=== PATIENT | female | born 1995 | race Caucasian/White ===

== ENCOUNTER 2023-10-04 08:18 | Day surgery (SDC) | payer BC ==
[2023-10-04] MEDS: Lactated Ringers 1,000 ML IV SCH (10:13)
[2023-10-04] MEDS ORDERED: propofoL 50 ML ONE ×2 (10:28→11:02)
[2023-10-04] MEDS ORDERED: dexmedeTOMIDine HCl 200 MCG/2 ML SDV ONE (10:29)
[2023-10-04] MEDS ORDERED: Ketamine HCL/NACL, ISO-OSM 50 MG/5 ML Syringe ONE (10:52)
== END 2023-10-04 13:00 | disposition home or self-care (01) ==
LOC: MW.SDS 08:18
PROVIDERS: ATTEND Surgery
DX: K31.7 Polyp of stomach and duodenum (principal); K20.0 Eosinophilic esophagitis; K21.9 Gastro-esophageal reflux disease without esophagitis; E66.01 Morbid (severe) obesity due to excess calories; R19.4 Change in bowel habit; E03.9 Hypothyroidism, unspecified; J45.909 Unspecified asthma, uncomplicated; G47.33 Obstructive sleep apnea (adult) (pediatric); Z79.890 Hormone replacement therapy; Z79.899 Other long term (current) drug therapy; Z68.43 Body mass index [BMI] 50.0-59.9, adult
CPT/HCPCS: 43239; 45380; 81025; J2704; J7120; 00813; J3490

== ENCOUNTER 2024-06-24 19:25 | Emergency (ER) | payer BC ==
[2024-06-24] MEDS: Sodium Chloride 0.9% 1,000 ML IV ONE (22:05)
[2024-06-24 22:06] LABS: BASOPHILS ABSOLUTE AUTO 0.01 K/uL (0.00-0.20); BASOPHILS PERCENT AUTO 0.2 % (0.0-1.0); EOSINOPHILS ABSOLUTE AUTO 0.21 K/uL (0.00-0.45); EOSINOPHILS PERCENT AUTO 3.7 % (0.0-6.0); HEMATOCRIT 44.2 % (37.0-47.0); HEMOGLOBIN 14.5 g/dL (12.0-16.0); IMMATURE GRAN ABSOLUTE AUTO 0.01 K/uL (0.00-0.05); IMMATURE GRAN PERCENT AUTO 0.2 % (0.0-0.4); LYMPHOCYTES ABSOLUTE AUTO 1.97 K/uL (1.00-4.80); LYMPHOCYTES PERCENT AUTO 34.4 % (24.0-44.0); MEAN CORPUSCULAR HEMOGLOBIN 28.4 pg (28.0-32.0); MEAN CORPUSCULAR HGB CONC 32.8 g/dL (32.0-36.0); MEAN CORPUSCULAR VOLUME 86.5 fL (83.0-99.0); MONOCYTES ABSOLUTE AUTO 0.76 K/uL (0.00-0.80); MONOCYTES PERCENT AUTO 13.3 % (0.0-8.0); NEUTROPHILS ABSOLUTE AUTO 2.77 K/uL (1.80-7.70); NEUTROPHILS PERCENT AUTO 48.2 % (41.0-71.0); PLATELET COUNT,PLT 227 K/uL (150-400); RED BLOOD CELL COUNT 5.11 M/uL (4.10-5.30); WHITE BLOOD CELL COUNT,WBC 5.73 K/uL (3.9-11.3)
[2024-06-24] MEDS: droPERidol 2.5 MG/ML SDV IVPUSH PRN (22:09)
[2024-06-24] MEDS: Ondansetron 4 MG/2 ML SDV IVPUSH ONE (22:09)
[2024-06-24] MEDS: Pantoprazole 40 MG in Sodium Chloride 0.9% 10 ML IVPUSH ONE (22:09)
[2024-06-24 22:35] LABS: A/G RATIO 1.1 (0.9-1.6); ALBUMIN 3.6 g/dL (3.4-5.0); BILIRUBIN TOTAL 0.8 mg/dL (0.2-1.0); CARBON DIOXIDE,CO2 26.3 mmol/L (21.0-32.0); EST CRCL DRUG DOSING (CG) 77.71 mL/min; POTASSIUM,K 3.5 mmol/L (3.5-5.1)
== END 2024-06-24 22:36 | disposition left against medical advice (07) ==
LOC: MW.ED 19:25
DX: A08.4 Viral intestinal infection, unspecified (principal); E86.0 Dehydration; E53.1 Pyridoxine deficiency; J45.909 Unspecified asthma, uncomplicated; K21.9 Gastro-esophageal reflux disease without esophagitis; E03.9 Hypothyroidism, unspecified; E66.9 Obesity, unspecified; Z79.899 Other long term (current) drug therapy; Z79.890 Hormone replacement therapy
CPT/HCPCS: 36415; 80053; 83690; 84703; 85025; 96374; 96375; 99284; J1790; J2405; J2470; J7030; 99283

== ENCOUNTER 2024-09-17 05:09 | Emergency (ER) | payer BC ==
[2024-09-17 05:32] LABS: BASOPHILS ABSOLUTE AUTO 0.05 K/uL (0.00-0.20); BASOPHILS PERCENT AUTO 0.4 % (0.0-1.0); EOSINOPHILS ABSOLUTE AUTO 0.21 K/uL (0.00-0.45); EOSINOPHILS PERCENT AUTO 1.8 % (0.0-6.0); IMMATURE GRAN ABSOLUTE AUTO 0.11 K/uL (0.00-0.05); IMMATURE GRAN PERCENT AUTO 1.0 % (0.0-0.4); LYMPHOCYTES ABSOLUTE AUTO 3.86 K/uL (1.00-4.80); LYMPHOCYTES PERCENT AUTO 33.6 % (24.0-44.0); MEAN PLATELET VOLUME 9.8 fL (9.4-12.3); MONOCYTES ABSOLUTE AUTO 0.61 K/uL (0.00-0.80); MONOCYTES PERCENT AUTO 5.3 % (0.0-8.0); NEUTROPHILS ABSOLUTE AUTO 6.66 K/uL (1.80-7.70); NEUTROPHILS PERCENT AUTO 57.9 % (41.0-71.0); NRBC ABSOLUTE 0.00 K/uL (0.00-0.02); NRBC PERCENT 0.0 /100WBC (0.0-0.2); PLATELET COUNT,PLT 491 K/uL (150-400); RED BLOOD CELL COUNT 4.61 M/uL (4.10-5.30); WHITE BLOOD CELL COUNT,WBC 11.50 K/uL (3.9-11.3)
[2024-09-17 05:38] LABS: GLUCOSE,URINE NEGATIVE (NEGATIVE); OCCULT BLOOD,URINE LARGE (NEGATIVE)
[2024-09-17] MEDS ORDERED: Sodium Chloride 0.9% 2.5 ML Syringe FLUSH PRN (05:39)
[2024-09-17] MEDS ORDERED: Sodium Chloride 0.9% 10 ML Syringe FLUSH PRN (05:39)
[2024-09-17 05:50] LABS: APPEARANCE,URINE SLT CLOUDY
[2024-09-17 05:58] LABS: A/G RATIO 0.8 (0.9-1.6); ALANINE AMINOTRANSFERASE,ALT 45.0 IU/L (14-63); ASPARTATE AMNIOTRANSFERASE,AST 21.0 IU/L (15-37); BILIRUBIN TOTAL 0.3 mg/dL (0.2-1.0); BLOOD UREA NITROGEN,BUN 19.0 mg/dL (7.0-18.0); CARBON DIOXIDE,CO2 24.4 mmol/L (21.0-32.0); CHLORIDE,CL 103.0 mmol/L (98-107); CREATININE 0.9 mg/dL (0.6-1.0); EST CRCL DRUG DOSING (CG) 86.34 mL/min; GLUCOSE RANDOM 128.0 mg/dL (74-106); POTASSIUM,K 4.2 mmol/L (3.5-5.1); PROTEIN TOTAL,TP 7.0 g/dL (6.4-8.2); SODIUM,NA 139.0 mmol/L (136-145)
[2024-09-17] MEDS: Ondansetron 4 MG/2 ML SDV IVPUSH ONE ×2 (06:00→06:25)
[2024-09-17 06:02] LABS: ESTIMATED GFR 89.0 mL/min (>60)
[2024-09-17 07:28] LABS: EPITHELIAL CELLS,URINE FEW (NONE-FEW)
[2024-09-17] MEDS: fentaNYL 50 MCG/ML SDV IVPUSH ONE ×2 (07:48→09:04)
== END 2024-09-17 10:15 | disposition home or self-care (01) ==
LOC: MW.ED 05:09
DX: S37.011A Minor contusion of right kidney, initial encounter (principal); N20.0 Calculus of kidney; E03.9 Hypothyroidism, unspecified; Z79.890 Hormone replacement therapy; Z79.899 Other long term (current) drug therapy; X58.XXXA Exposure to other specified factors, initial encounter
CPT/HCPCS: 36415; 74176; 76705; 80053; 81001; 81025; 85025; 96361; 96374; 96375; 96376; 99285; J1171; J2270; J2405; J3010; J7030

== ENCOUNTER 2024-10-10 13:52 | Emergency (ER) | payer BC ==
[2024-10-10] MEDS: Sodium Chloride 0.9% 2.5 ML Syringe FLUSH PRN (15:39)
[2024-10-10] MEDS: Ondansetron 4 MG/2 ML SDV IVPUSH ONE (15:39)
[2024-10-10] MEDS: Sodium Chloride 0.9% 10 ML Syringe FLUSH PRN (15:39)
[2024-10-10 15:43] LABS: BASOPHILS ABSOLUTE AUTO 0.04 K/uL (0.00-0.20); BASOPHILS PERCENT AUTO 0.5 % (0.0-1.0); EOSINOPHILS ABSOLUTE AUTO 0.15 K/uL (0.00-0.45); EOSINOPHILS PERCENT AUTO 1.7 % (0.0-6.0); IMMATURE GRAN ABSOLUTE AUTO 0.03 K/uL (0.00-0.05); IMMATURE GRAN PERCENT AUTO 0.3 % (0.0-0.4); LYMPHOCYTES ABSOLUTE AUTO 2.93 K/uL (1.00-4.80); LYMPHOCYTES PERCENT AUTO 33.2 % (24.0-44.0); MEAN PLATELET VOLUME 10.3 fL (9.4-12.3); MONOCYTES ABSOLUTE AUTO 0.73 K/uL (0.00-0.80); MONOCYTES PERCENT AUTO 8.3 % (0.0-8.0); NEUTROPHILS ABSOLUTE AUTO 4.95 K/uL (1.80-7.70); NEUTROPHILS PERCENT AUTO 56.0 % (41.0-71.0); NRBC ABSOLUTE 0.00 K/uL (0.00-0.02); NRBC PERCENT 0.0 /100WBC (0.0-0.2); PLATELET COUNT,PLT 280 K/uL (150-400); RED BLOOD CELL COUNT 4.22 M/uL (4.10-5.30); WHITE BLOOD CELL COUNT,WBC 8.83 K/uL (3.9-11.3)
[2024-10-10 16:05] LABS: INR 0.98 (0.86-1.11); PTT,PARTIAL THROMBOPLSTIN TIME 28.5 SEC (23.9-30.7)
[2024-10-10 16:13] LABS: A/G RATIO 1.2 (0.9-1.6); ALANINE AMINOTRANSFERASE,ALT 21.0 IU/L (14-63); ASPARTATE AMNIOTRANSFERASE,AST 20.0 IU/L (15-37); BILIRUBIN TOTAL 0.4 mg/dL (0.2-1.0); BLOOD UREA NITROGEN,BUN 10.0 mg/dL (7.0-18.0); CARBON DIOXIDE,CO2 27.4 mmol/L (21.0-32.0); CHLORIDE,CL 105.0 mmol/L (98-107); CREATININE 0.8 mg/dL (0.6-1.0); EST CRCL DRUG DOSING (CG) 97.13 mL/min; GLUCOSE RANDOM 87.0 mg/dL (74-106); POTASSIUM,K 3.6 mmol/L (3.5-5.1); PROTEIN TOTAL,TP 6.9 g/dL (6.4-8.2); SODIUM,NA 140.0 mmol/L (136-145)
[2024-10-10 16:15] LABS: ESTIMATED GFR 102.0 mL/min (>60)
[2024-10-10 16:20] LABS: LACTIC ACID 1.0 mmol/L (0.4-2.0)
[2024-10-10] MEDS: Iopamidol 755 MG/ML 500 ML Multipack Bottle IVPUSH STA (16:33)
[2024-10-10 18:08] LABS: APPEARANCE,URINE CLEAR; GLUCOSE,URINE NEGATIVE (NEGATIVE); OCCULT BLOOD,URINE NEGATIVE (NEGATIVE)
[2024-10-10] MEDS: cefTRIAXone 2 GM in Water For Injection, Sterile 20 ML IVPUSH ONE (18:24)
== END 2024-10-10 21:01 ==
LOC: MW.ED 13:52
DX: N12 Tubulo-interstitial nephritis, not specified as acute or chronic (principal); N28.9 Disorder of kidney and ureter, unspecified; E86.0 Dehydration; I10 Essential (primary) hypertension; J45.909 Unspecified asthma, uncomplicated; K21.9 Gastro-esophageal reflux disease without esophagitis; E03.9 Hypothyroidism, unspecified; E66.9 Obesity, unspecified; Z68.42 Body mass index [BMI] 45.0-49.9, adult; Z79.890 Hormone replacement therapy; Z79.899 Other long term (current) drug therapy
CPT/HCPCS: 36415; 71046; 74178; 80053; 81003; 83605; 83690; 83735; 84703; 85025; 85610; 85730; 87040; 96374; 96375; 99285; J0696; J2405; Q9967

== ENCOUNTER 2024-12-13 13:23 | Emergency (ER) | payer BC ==
[2024-12-13 14:28] LABS: APPEARANCE,URINE CLEAR; GLUCOSE,URINE NEGATIVE (NEGATIVE); OCCULT BLOOD,URINE LARGE (NEGATIVE)
[2024-12-13 14:39] LABS: BASOPHILS ABSOLUTE AUTO 0.02 K/uL (0.00-0.20); BASOPHILS PERCENT AUTO 0.3 % (0.0-1.0); EOSINOPHILS ABSOLUTE AUTO 0.06 K/uL (0.00-0.45); EOSINOPHILS PERCENT AUTO 0.9 % (0.0-6.0); IMMATURE GRAN ABSOLUTE AUTO 0.02 K/uL (0.00-0.05); IMMATURE GRAN PERCENT AUTO 0.3 % (0.0-0.4); LYMPHOCYTES ABSOLUTE AUTO 1.41 K/uL (1.00-4.80); LYMPHOCYTES PERCENT AUTO 21.6 % (24.0-44.0); MEAN PLATELET VOLUME 10.8 fL (9.4-12.3); MONOCYTES ABSOLUTE AUTO 0.65 K/uL (0.00-0.80); MONOCYTES PERCENT AUTO 10.0 % (0.0-8.0); NEUTROPHILS ABSOLUTE AUTO 4.36 K/uL (1.80-7.70); NEUTROPHILS PERCENT AUTO 66.9 % (41.0-71.0); NRBC ABSOLUTE 0.00 K/uL (0.00-0.02); NRBC PERCENT 0.0 /100WBC (0.0-0.2); PLATELET COUNT,PLT 202 K/uL (150-400); RED BLOOD CELL COUNT 4.82 M/uL (4.10-5.30); WHITE BLOOD CELL COUNT,WBC 6.52 K/uL (3.9-11.3)
[2024-12-13 14:59] LABS: EPITHELIAL CELLS,URINE FEW (NONE-FEW)
[2024-12-13 15:08] LABS: A/G RATIO 1.2 (0.9-1.6); ALANINE AMINOTRANSFERASE,ALT 18.0 IU/L (14-63); ASPARTATE AMNIOTRANSFERASE,AST 14.0 IU/L (15-37); BILIRUBIN TOTAL 0.5 mg/dL (0.2-1.0); BLOOD UREA NITROGEN,BUN 18.0 mg/dL (7.0-18.0); CARBON DIOXIDE,CO2 28.0 mmol/L (21.0-32.0); CHLORIDE,CL 103.0 mmol/L (98-107); CREATININE 0.7 mg/dL (0.6-1.0); EST CRCL DRUG DOSING (CG) 111.01 mL/min; GLUCOSE RANDOM 83.0 mg/dL (74-106); POTASSIUM,K 4.3 mmol/L (3.5-5.1); PROTEIN TOTAL,TP 7.0 g/dL (6.4-8.2); SODIUM,NA 139.0 mmol/L (136-145)
[2024-12-13 15:11] LABS: ESTIMATED GFR 120.0 mL/min (>60); LACTIC ACID 0.4 mmol/L (0.4-2.0)
== END 2024-12-13 15:35 | disposition home or self-care (01) ==
LOC: MW.ED 13:23
DX: J06.9 Acute upper respiratory infection, unspecified (principal); I10 Essential (primary) hypertension; K21.9 Gastro-esophageal reflux disease without esophagitis; E03.9 Hypothyroidism, unspecified; Z79.890 Hormone replacement therapy; Z79.899 Other long term (current) drug therapy
CPT/HCPCS: 36415; 80053; 81001; 83605; 85025; 87428-QW; 87651; 99283

== ENCOUNTER 2025-01-07 12:20 | Observation (INO) | payer BC ==
[2025-01-07 12:52] LABS: BASOPHILS ABSOLUTE AUTO 0.02 K/uL (0.00-0.20); BASOPHILS PERCENT AUTO 0.3 % (0.0-1.0); EOSINOPHILS ABSOLUTE AUTO 0.07 K/uL (0.00-0.45); EOSINOPHILS PERCENT AUTO 1.0 % (0.0-6.0); IMMATURE GRAN ABSOLUTE AUTO 0.01 K/uL (0.00-0.05); IMMATURE GRAN PERCENT AUTO 0.1 % (0.0-0.4); LYMPHOCYTES ABSOLUTE AUTO 2.56 K/uL (1.00-4.80); LYMPHOCYTES PERCENT AUTO 36.0 % (24.0-44.0); MEAN PLATELET VOLUME 10.9 fL (9.4-12.3); MONOCYTES ABSOLUTE AUTO 0.66 K/uL (0.00-0.80); MONOCYTES PERCENT AUTO 9.3 % (0.0-8.0); NEUTROPHILS ABSOLUTE AUTO 3.79 K/uL (1.80-7.70); NEUTROPHILS PERCENT AUTO 53.3 % (41.0-71.0); NRBC ABSOLUTE 0.00 K/uL (0.00-0.02); NRBC PERCENT 0.0 /100WBC (0.0-0.2); PLATELET COUNT,PLT 198 K/uL (150-400); RED BLOOD CELL COUNT 4.96 M/uL (4.10-5.30); WHITE BLOOD CELL COUNT,WBC 7.11 K/uL (3.9-11.3)
[2025-01-07] MEDS: Ketorolac 30 MG/ML SDV IVPUSH ONE (13:09)
[2025-01-07] MEDS: Ondansetron 4 MG/2 ML SDV IVPUSH ONE (13:09)
[2025-01-07 13:25] LABS: A/G RATIO 1.3 (0.9-1.6); ALANINE AMINOTRANSFERASE,ALT 17.0 IU/L (14-63); ASPARTATE AMNIOTRANSFERASE,AST 15.0 IU/L (15-37); BILIRUBIN TOTAL 0.4 mg/dL (0.2-1.0); BLOOD UREA NITROGEN,BUN 18.0 mg/dL (7.0-18.0); CARBON DIOXIDE,CO2 26.1 mmol/L (21.0-32.0); CHLORIDE,CL 104.0 mmol/L (98-107); CREATININE 0.7 mg/dL (0.6-1.0); EST CRCL DRUG DOSING (CG) 111.01 mL/min; ESTIMATED GFR 120.0 mL/min (>60); GLUCOSE RANDOM 83.0 mg/dL (74-106); POTASSIUM,K 4.1 mmol/L (3.5-5.1); PROTEIN TOTAL,TP 6.8 g/dL (6.4-8.2); SODIUM,NA 140.0 mmol/L (136-145)
[2025-01-07 13:46] LABS: GLUCOSE,URINE NEGATIVE (NEGATIVE); OCCULT BLOOD,URINE TRACE-INTACT (NEGATIVE)
[2025-01-07 13:47] LABS: APPEARANCE,URINE HAZY
[2025-01-07 13:54] LABS: SQUAMOUS EPITHELIAL CELLS,UR FEW
[2025-01-07] MEDS: Acetaminophen/HYDROcodone 325-5 MG Tab PO PRN ×2 (18:15→23:45)
[2025-01-07] MEDS: Ondansetron 4 MG Tab.DIS PO PRN (20:12)
[2025-01-07] MEDS: Lactated Ringers 1,000 ML IV SCH (20:13)
[2025-01-07] MEDS: Ondansetron 4 MG/2 ML SDV IVPUSH PRN (21:29)
[2025-01-08] MEDS: ceFAZolin 2 GM in Water For Injection, Sterile 20 ML IV ONE (08:14)
[2025-01-08] MEDS ORDERED: Naloxone 0.4 MG/ML SDV IVPUSH PRN (08:15)
[2025-01-08] MEDS ORDERED: Ondansetron 4 MG/2 ML SDV IVPUSH PRN (08:15)
[2025-01-08] MEDS ORDERED: Albuterol 0.083% 2.5 MG/3 ML Neb Soln NEB PRN (08:15)
[2025-01-08] MEDS ORDERED: dexmedeTOMIDine HCl 200 MCG/2 ML SDV ONE (09:05)
[2025-01-08] MEDS ORDERED: fentaNYL 250 MCG/5 ML SDV ONE (09:05)
[2025-01-08] MEDS ORDERED: Morphine 10 MG/ML SDV ONE (09:05)
[2025-01-08] MEDS ORDERED: Propofol 200 MG/20 ML SDV ONE (09:05)
[2025-01-08] MEDS ORDERED: propofoL 500 MG/50 ML 50 ML ONE ×2 (09:05→10:26)
[2025-01-08] MEDS ORDERED: Ropivacaine 0.5% 5 MG/ML 30 ML SDV ONE (09:09)
[2025-01-08] MEDS ORDERED: Lidocaine 2% 11 ML Jelly Filled Syringe ONE (09:50)
[2025-01-08] MEDS ORDERED: Indocyanine Green 25 MG SDV ONE (10:07)
[2025-01-08] MEDS ORDERED: Ondansetron 4 MG/2 ML SDV ONE ×2 (10:52→10:53)
[2025-01-08] MEDS ORDERED: Dexamethasone 4 MG/ML 5 ML MDV ONE (10:53)
[2025-01-08] MEDS ORDERED: Ketorolac 30 MG/ML SDV ONE (10:53)
[2025-01-08] MEDS: fentaNYL 50 MCG/ML SDV IVPUSH PRN (11:42)
[2025-01-08] MEDS ORDERED: Acetaminophen/HYDROcodone 325-5 MG Tab PO PRN (14:56)
[2025-01-08] MEDS ORDERED: Lactated Ringers 1,000 ML IV SCH (15:00)
== END 2025-01-08 19:00 | disposition home or self-care (01) ==
LOC: MW.ED 12:20 → MW.MS 16:27
PROVIDERS: ADMIT Surgery; ATTEND Surgery
DX: K80.64 Calculus of gallbladder and bile duct with chronic cholecystitis without obstruction (principal); E03.9 Hypothyroidism, unspecified; E66.9 Obesity, unspecified; Z68.41 Body mass index [BMI] 40.0-44.9, adult; Z79.890 Hormone replacement therapy; Z79.899 Other long term (current) drug therapy
CPT/HCPCS: 36415; 47562; 80053; 81001; 81025; 83690; 83735; 85025; 96361; 96374; 96375; 96376; 99284; A4216; A9270; G0378; J0665; J0690; J1100; J1171; J1308; J1885; J2270; J2272; J2405; J2704; J2795; J3010; J7030; J7120; 00790; 64488; 99285; J3490